=== PATIENT | male | born 1990 | race Caucasian/White ===

== ENCOUNTER 2020-10-23 01:45 | Emergency (ER) | payer OTHER ==
[2020-10-23 02:58] LABS: BASOPHIL 0.9 % (0-2); EOSINOPHIL 4.2 % (0-5); HGB 14.3 g/dl (13.2-18.0); LYMPHOCYTE 38.2 % (15-48); MCHC 33.3 g/dL (32.0-36.0); MCV 90.1 fL (78.0-100.0); MONOCYTE 7.1 % (0-12); MPV 11.2 fL (6.0-9.5); NEUTROPHIL 48.9 % (41-80); NRBC 0; PLT 271 K/uL (150-400); RBC 4.77 M/uL (4.70-6.00); WBC 10.6 K/uL (4.0-10.5)
[2020-10-23 03:02] LABS: BUN/CREAT RATIO (CALC) 16.7 RATIO; CREATININE 0.78 mg/dL (0.67-1.17); POTASSIUM 3.9 mmol/L (3.5-5.1)
[2020-10-23 03:20] LABS: CORONAVIRUS 2019 SARS-COV-2 NEGATIVE (NEGATIVE); INFLUENZA A NAA NEGATIVE (NEGATIVE)
== END 2020-10-23 03:34 | disposition home or self-care (01) ==
LOC: FER 01:45
PROVIDERS: Emergency Medicine
DX: B34.9 Viral infection, unspecified (principal); F17.200 Nicotine dependence, unspecified, uncomplicated; Z20.822 Contact with and (suspected) exposure to COVID-19
CPT/HCPCS: 36415; 71045; 80048; 85025; U0002

== ENCOUNTER 2022-03-07 22:47 | Emergency (ER) | payer SELFPAY ==
[2022-03-07] MEDS ORDERED: AMOX TR-K CLV1 EAC4 PO (23:59)
== END 2022-03-08 00:16 | disposition home or self-care (01) ==
LOC: FER 22:47
DX: H66.91 Otitis media, unspecified, right ear (principal); F17.210 Nicotine dependence, cigarettes, uncomplicated; Z28.310 Unvaccinated for COVID-19
CPT/HCPCS: 99282; J1885